=== PATIENT | male | born 1955 | race Caucasian/White ===

== ENCOUNTER 2017-09-04 00:29 | Emergency (ER) | payer OTHER ==
[~2017-09-04 00:29] MED LIST: ASPIRIN325 M2 PO; BETAPACE80 MG PO; CILOXAN5 ML OPH; ELIQUIS5 M1 PO; PRAVASTATIN SOD20 M2 PO
[2017-09-04 01:01] VITALS: BP 129/78
[2017-09-04] MEDS ORDERED: IBUPROFEN600 M1 PO (01:09)
--- NOTE | 2017-09-04 01:10 | ED UPPER/LOWER EXTREMITY COMPL ---
History of Present Illness General Chief Complaint: Upper Extremity Injury Stated Complaint: "I PULLED MY RIGHT ARM WORKING" Source: patient, old records Exam Limitations: no limitations Vital Signs & Intake/Output Vital Signs & Intake/Output Vital Signs Date Time Temp Pulse Resp B/P B/P Pulse O2 O2 Flow FiO2 Mean Ox Delivery Rate 09/04 0101 78 18 129/78 98 Room Air Allergies Coded Allergies: No Known Allergies (09/04/17) Reconcile Medications Apixaban (Eliquis) 5 MG TABLET 5 MG PO BID ANTICOGULATION Ciprofloxacin (Ciloxan) 0.3 % DROPS 1 GTT OPH TID CORNEAL ABRASION Ibuprofen 600 MG TABLET 1 TAB PO TID PRN PAIN with food Pravastatin Sodium 20 MG TABLET 1 TAB PO DAILY CHOLESTEROL (Reported) Sotalol (Betapace) 80 MG TABLET 80 MG PO TID ATRIAL FIBRILLATION Triage Note: TRIAGE: PATIENT TO ER FROM HOME REPORTING S/P WORK RELATED INJURY; "UNLOCKED O.R. TABLE FOR THE NEXT CASE TO MOVE IT AROUND. MOVED IT FROM AT THE HEAD OF THE TABLE, I GUESS I JERKED IT. 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 Triage Nurses Notes Reviewed? yes HPI: Patient was at work earlier this evening and was moving an operating room table. Patient states he was in a hurry so jerked the table and felt a sudden onset of a pulling sensation in his right shoulder that radiates down the lateral aspect of his right arm to an area just above his elbow. Patient was able to continue work. Patient states that when he is not moving his arm there is almost no pain however when he moves his arm he gets an achy pain that he rates as moderate on the scale. There is no weakness or numbness. Patient has no other complaints. Past History Travel History Traveled to [place] past 21 day No Medical History Any Pertinent Medical History? 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 No Review of Systems Review of Systems Constitutional: Reports: no symptoms. Respiratory: Reports: no symptoms. Cardiovascular: Reports: no symptoms. Musculoskeletal: Reports: see HPI. Neurological/Psychological: Reports: no symptoms. Immunological: Reports: no symptoms. Physical Exam Physical Exam General Appearance: well developed/nourished, alert, awake, anxious, mild distress Eyes: Bilateral: PERRL, EOMI. Cardiovascular/Respiratory: normal breath sounds, normal peripheral pulses, regular rate/rhythm, no respiratory distress Shoulder Right: normal range of motion, tenderness, pain, soft tissue tenderness Elbow Right: normal range of motion, normal inspection Neurologic/Tendon: normal sensation, normal motor functions, normal tendon functions Progress Differential Diagnosis: sprain, tendon injury, STRAIN Plan of Care: Current Medications Sig/Arnaldo Start time Last Medication Dose Stop Time Status Admin Ibuprofen 600 MG ONCE ONE 09/04 114 UNVr (Motrin) 09/05 115 Departure Departure Disposition: HOME OR SELF CARE Condition: Stable Clinical Impression Primary Impression: Muscle strain Referrals: Daniela Faustin (PCP/Family) Additional Instructions: Go on light duty until cleared by occupational medicine. Take Motrin as needed for the pain. I should shoulder down. Return if symptoms worsen or for any concerns. Departure Forms: Customer Survey [employer] Employee Acc Report General Discharge Information Prescriptions: Current Visit Scripts Ibuprofen 1 TAB PO TID PRN PAIN #20 TAB with food
== END 2017-09-04 01:23 ==
LOC: ERH 00:29
DX: S46.911A Strain of unspecified muscle, fascia and tendon at shoulder and upper arm level, right arm, initial encounter (principal); X50.0XXA Overexertion from strenuous movement or load, initial encounter; Y93.89 Activity, other specified; Y92.234 Operating room of hospital as the place of occurrence of the external cause

== ENCOUNTER 2017-09-30 10:44 | Emergency (ER) | payer OTHER ==
[~2017-09-30] VITALS: Ht 182.9 cm; Wt 83.9 kg
[~2017-09-30 10:44] MED LIST changes: +IBUPROFEN600 M1 PO
[2017-09-30 11:56] LABS: ABSOLUTE BASOPHIL COUNT 0 /CUMM (0.0-0.2); ABSOLUTE EOSINOPHIL COUNT 0 /CUMM (0.0-0.7); ABSOLUTE GRANULOCYTE CT 5.3 /CUMM (1.4-6.5); ABSOLUTE LYMPH COUNT 0.6 /CUMM (1.2-3.4); ABSOLUTE MONOCYTE COUNT 0.3 /CUMM (0.10-0.60); BASOPHIL % 0.4 % (0.0-2.0); EOSINOPHIL % 0.8 % (0-5); HEMATOCRIT 45.5 % (42-52); MEAN CORPUSCULAR HGB CONC 33.7 G/DL (33.0-37.0); MEAN CORPUSCULAR VOLUME 91.9 FL (80.0-94.0); MEAN PLATELET VOLUME 7.6 FL (7.4-10.4); PLATELET COUNT 221 /CUMM (130-400); RBC DISTRIBUTION WIDTH 14.2 % (11.5-14.5); RED BLOOD CELL CT 4.94 /CUMM (4.70-6.10); WHITE BLOOD CELL COUNT 6.3 /CUMM (4.8-10.8)
[2017-09-30 12:19] LABS: GRANULOCYTE % 83.7 % (42.2-75.2)
[2017-09-30] MEDS ORDERED: PRAVASTATIN SOD40 M2 PO (13:03)
[2017-09-30] MEDS ORDERED: VALSARTAN80 M1 PO (13:03)
--- NOTE | 2017-09-30 14:08 | ED GENERAL ADULT ---
History of Present Illness General Chief Complaint: Eye Problems Stated Complaint: EYE INJURY Source: patient, family Exam Limitations: no limitations, unable to give history Vital Signs & Intake/Output Vital Signs & Intake/Output Vital Signs Date Time Temp Pulse Resp B/P B/P Pulse O2 O2 Flow FiO2 Mean Ox Delivery Rate 09/30 1048 98.4 97 18 123/79 98 Room Air Allergies Coded Allergies: No Known Allergies (09/04/17) Reconcile Medications Pravastatin Sodium 40 MG TABLET 1 TAB PO QPM CHOLESTEROL (Reported) Valsartan 80 MG TABLET 0.5 TAB PO DAILY BP (Reported) Triage Note: 62 YO MALE TO TRIAGE FOR EVAL OF L EYE. REPORTS HE WAS WORKING OUTSIDE AND A ROCK CAME UP AND HIT HIM IN THE EYE. PT WAS WEARING SAFETY GLASSES. PTS EYE NOTED TO BE RED. PT STATES HE IS ABLE TO SEE OUT OF HIS EYE. REPORTS PAIN TO EYE. Triage Nurses Notes Reviewed? yes HPI: 62-year-old male comes in with trauma to the left eye. The patient reports that he was carving stone and had safety glasses on when a piece of stone chip went under the glass and hit him in the eye. He denies vision change. He reports mild pain in the eye. He reports redness to the eye. This happened just prior to arrival. Past History Travel History Traveled to [place] past 21 day No Medical History Any Pertinent Medical History? 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 No Review of Systems Review of Systems Constitutional: Denies: chills, diaphoresis, fever. EENTM: Reports: eye pain, eye tearing. Denies: blurred vision, double vision, visual changes, eye drainage, icterus. Respiratory: Denies: cough, hemoptysis, orthopnea. Cardiovascular: Denies: chest pain, edema, orthopena. GI: Denies: abdominal pain, bloating, constipation. Musculoskeletal: Denies: back pain, joint pain. Skin: Denies: cysts, change in skin color, change in hair/nails. Neurological/Psychological: Denies: anxiety, ataxia, cognitive dysfunction. Hematologic/Endocrine: Denies: bruising, bleeding, polyuria. Physical Exam Physical Exam General Appearance: well developed/nourished, no apparent distress Head: atraumatic, normal appearance Eyes: Bilateral: PERRL, EOMI. Ears, Nose, Throat: normal pharynx, normal ENT inspection Respiratory: normal breath sounds, chest non-tender Cardiovascular: regular rate/rhythm, edema Gastrointestinal: normal bowel sounds, soft, non-tender Back: normal inspection, normal range of motion Neurologic/Psych: awake, alert, oriented x 3 Skin: intact, normal color, cyanosis Comments: Evaluation of the left eye. 20/20 vision. No photophobia. Subconjunctival hemorrhage. Eyelids everted, no foreign body. Evaluated with slit-lamp, Flowers lamp and stained. No change with tetracaine. No corneal abrasion, no hyphema. Ultrasound of the eye was done showing no foreign body in the eye. Core Measures ACS in differential dx? No CVA/TIA Diagnosis: No Sepsis Present: No Sepsis Focused Exam Completed? No Progress Differential Diagnoses Isolated injury to the left eye. Plan of Care: Orders Procedure Date/time Status ED- VISUAL ACUITY 09/30 1058 Active COMPREHENSIVE METABOLIC PANEL 09/30 1058 Complete CBC WITHOUT DIFFERENTIAL 09/30 1058 Complete Current Medications Sig/Arnaldo Start time Last Medication Dose Stop Time Status Admin Tetanus/Diphtheria 0.5 ML ONCE ONE 09/30 1415 AC Toxoids Adsorbed 09/30 1416 (Decava) Laboratory Tests 09/30/17 1148: Anion Gap 8, Estimated GFR > 60, BUN/Creatinine Ratio 37.5 H, Glucose 116 H, Calcium 9.3, Total Bilirubin 0.8, AST 32, ALT 50, Alkaline Phosphatase 57, Total Protein 7.0, Albumin 4.2, Globulin 2.8, Albumin/Globulin Ratio 1.5, CBC w Diff NO MAN DIFF REQ, RBC 4.94, MCV 91.9, MCH 31.0, MCHC 33.7, RDW 14.2, MPV 7.6, Gran % 83.7 H, Lymphocytes % 10.0 L, Monocytes % 5.1, Eosinophils % 0.8, Basophils % 0.4, Absolute Granulocytes 5.3, Absolute Lymphocytes 0.6 L, Absolute Monocytes 0.3, Absolute Eosinophils 0, Absolute Basophils 0 Initial ED EKG: none Comments: A detailed exam with tetracaine, fluorescein, slit-lamp, Flowers lamp and ultrasound done. No foreign body. Subconjunctival hematoma. I discussed the case with . He recommends antibiotic drops, follow- up next week. He is comfortable with the ultrasound and does not believe a CT scan is negative for foreign body. Bedside ultrasound was done by me. No foreign body was seen. Departure Departure Time of Disposition: 1410 Disposition: HOME OR SELF CARE Condition: Stable Clinical Impression Primary Impression: Subconjunctival hemorrhage Secondary Impressions: Subconjunctival hemorrhage of left eye Referrals: Daniela Faustin (PCP/Family) Additional Instructions: Return for vision change, worsening symptoms or worsening pain. 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 Departure Forms: Customer Survey General Discharge Information Critical Care Note Critical Care Note Critical Care Time: non-applicable
[2017-09-30] MEDS ORDERED: VIGAMOX3 ML OPH (14:13)
[2017-09-30 14:26] VITALS: BP 124/79
== END 2017-09-30 14:28 ==
LOC: ERH 10:44
PROVIDERS: Physician Assistant Medical
DX: S05.02XA Injury of conjunctiva and corneal abrasion without foreign body, left eye, initial encounter (principal); H11.32 Conjunctival hemorrhage, left eye; W22.8XXA Striking against or struck by other objects, initial encounter
CPT/HCPCS: 90471; 90714